=== PATIENT | female | born 1990 | race Caucasian/White ===

== ENCOUNTER → 2018-12-29 12:44 | Outpatient (CLI) | payer OTHER, SELFPAY ==
--- NOTE | 2018-12-29 | DI.US.S_ITS ---
PROCEDURE: US PERIPH VENOUS LOW EXTREM LT INDICATIONS: PAIN IN LEFT ANKLE AND JOINTS OF LEFT FOOT TECHNIQUE: Real-time imaging, as well as color and pulse Doppler interrogation, were performed of the lower extremity deep veins from the inguinal ligament to the popliteal fossa. COMPARISON: None. FINDINGS: The common femoral, femoral and popliteal veins are normally compressible, and free of intraluminal thrombus. Color and pulse Doppler demonstrate normal phasic intraluminal flow. There is normal augmentation response to distal compression maneuver. Incidental note is made of a Sanchez's cyst within the popliteal fossa. IMPRESSION: 1. No evidence of left lower extremity deep vein thrombosis. 2. Sanchez cyst. The need for better evaluation of the knee for internal derangement, utilizing MRI may be determined clinically. Dictated by: Moe Walter M.D. on 12/29/2018 at 13:37 Approved by: Moe Walter M.D. on 12/29/2018 at 13:41
== END ==
PROVIDERS: PCP Nurse Practitioner; Visit Provider Nurse Practitioner
DX: M25.572 Pain in left ankle and joints of left foot (principal); M71.22 Synovial cyst of popliteal space [Baker], left knee
CPT/HCPCS: 93971

== ENCOUNTER 2019-09-07 18:46 | Emergency (ER) | payer OTHER, MEDICAID, SELFPAY ==
[2019-09-07 19:02] VITALS: BP 124/61; PULSE 68; RESP 16; TEMP 37.3; O2SAT 100; BMI 23.3
--- NOTE | 2019-09-07 19:22 | ED_ITS ---
HPI - Abdominal Pain <CARMINE Augustine - Last Filed: 09/07/19 21:10> General Chief Complaint: Abdominal Pain Stated Complaint: LUMP LEFT LOWER SIDE PAIN Time Seen by Provider: 09/07/19 19:02 Source: patient Mode of arrival: Ambulatory Limitations: no limitations History of Present Illness HPI narrative: The patient is a 28-year-old female nonsmoker who denies pertinent medical history presents with a chief complaint of right lower quadrant pain. She states has been going on for the past few months, and that over the past few days has become unbearable. She states that she cannot do anything because the pain, that she cannot stand up straight because the pain. It is worse with activity, motion, she denies any dysuria urgency or frequency. She denies any fevers chest pain shortness of breath. She states the pain is so bad she is nauseous at times. No vomiting or diarrhea. She states that she feels a lump in her right lower quadrant. Related Data Allergies Allergy/AdvReac Type Severity Reaction Status Date / Time No Known Drug Allergies Allergy Verified 09/07/19 19:02 Review of Systems <CARMINE Augustine - Last Filed: 09/07/19 21:10> Review of Systems Narrative: GENERAL: Denies chills, fatigue, malaise, fever, sweats. HEENT: Denies sinus pain, ear pain, sore throat, difficulty swallowing, dizziness. RESPIRATORY: Denies dyspnea, cough, wheezing, hemoptysis, sputum. CARDIOVASCULAR: Denies chest pain, palpitations, orthopnea, edema, GASTROINTESTINAL: See HPI : Denies dysuria, frequency, incontinence, hematuria, urinary retention. MUSCULOSKELETAL: denies weakness, joint pain, or bony pain SKIN: Denies rash, skin lesions, or other NEUROLOGIC: Denies weakness, headache, numbness, change in speech, confusion, seizures, incoordination. PSYCHIATRIC: No concerning psychosocial issues. 12 point review of systems is negative except for those stated above Patient History <PRAVEEN Augustine - Last Filed: 09/07/19 21:10> Social History Smoking Status: Never smoker Smoking Status: Never smoker Substance Use Type: does not use Exam <PRAVEEN Augustine - Last Filed: 09/07/19 21:10> Narrative Exam Narrative: GENERAL: This is a well-nourished, well-developed patient, in no acute distress HEAD: Atraumatic. Normocephalic. No temporal or scalp tenderness. EYES: Pupils equal round and reactive. Extraocular motions intact. No scleral icterus. No injection or drainage. ENT: Nose without bleeding, purulent drainage or septal hematoma. Throat without erythema, tonsillar hypertrophy or exudate. Uvula midline. Airway patent. NECK: Trachea midline. No JVD or lymphadenopathy. Supple, nontender, no meningeal signs. CARDIOVASCULAR: Regular rate and rhythm RESPIRATORY: Clear to auscultation. Breath sounds equal bilaterally. No wheezes, rales, or rhonchi. GASTROINTESTINAL: Abdomen soft, active bowel sounds all 4 quadrants. Pain to palpation right lower quadrant. EXTREMITIES: No clubbing, cyanosis, or edema. No joint tenderness, effusion, or edema noted. BACK: Nontender without deformity or crepitance. No flank tenderness. NEURO: AOx3. SKIN: No rash or erythema on visible skin Initial Vital Signs Initial Vital Signs: Vital Signs Temperature 99.1 F 09/07/19 19:02 Pulse Rate 68 09/07/19 19:02 Respiratory Rate 16 09/07/19 19:02 Blood Pressure 124/61 09/07/19 19:02 Pulse Oximetry 100 09/07/19 19:02 <Bert Chase DO - Last Filed: 09/07/19 21:16> Initial Vital Signs Initial Vital Signs: Vital Signs Temperature 99.1 F 09/07/19 19:02 Pulse Rate 68 09/07/19 19:02 Respiratory Rate 16 09/07/19 19:02 Blood Pressure 124/61 09/07/19 19:02 Pulse Oximetry 100 09/07/19 19:02 Course <PJ Augustine-BC - Last Filed: 09/07/19 21:10> Orders Ordered: ED Orders 09/07/19 19:17 Urine Microscopic Stat 09/07/19 19:30 Amylase Stat Complete Blood Count AUTO DIFF Stat Comprehensive Metabolic Panel Stat Lipase Stat 09/07/19 20:08 US abdomen limited Stat 09/07/19 20:09 CT abdomen pelvis w con Stat Sodium Chloride (Normal Saline 0.9%) 1,000 mls @ 1,000 mls/hr IV BOLUS PRN PRN Reason: Fluid replacement Last Infusion: 09/07/19 20:56 Dose: 0 mls/hr Documented by: Admin: 09/07/19 19:42 Dose: 1,000 mls/hr Documented by: LISA Discontinued Medications Hydrocodone Bitart/Acetaminophen (Vicodin 5/325 Prepack) 1 bottle MISC SEEINSTR ONE Stop: 09/07/19 21:05 Ketorolac Tromethamine (Toradol) 30 mg IV NOW ONE Stop: 09/07/19 19:33 Last Admin: 09/07/19 19:42 Dose: 30 mg Documented by: LISA Ketorolac Tromethamine (Toradol 10mg Prepack) 1 bottle MISC SEEINSTR ONE Stop: 09/07/19 21:05 Ondansetron HCl (Zofran Odt Prepack) 1 bottle MISC SEEINSTR ONE Stop: 09/07/19 21:05 Reevaluation(s) Reevaluation #1: Patient states that her pain is slightly improved with the Toradol. She states the area still sore. Discussed preliminary ultrasound findings with patient including possible mass and right lower quadrant, CT with contrast ordered. Patient in accordance with plan of care. Time: 20:10 Vital Signs Vital signs: Vital Signs - 8 hr 09/07/19 19:02 09/07/19 20:58 Temperature 99.1 F Pulse Rate 68 68 Respiratory Rate 16 16 Blood Pressure 124/61 Blood Pressure [Left Arm] 115/65 Pulse Oximetry 100 98 <Bert Chase, DO - Last Filed: 09/07/19 21:16> Orders Ordered: ED Orders 09/07/19 19:17 Urine Microscopic Stat 09/07/19 19:30 Amylase Stat Complete Blood Count AUTO DIFF Stat Comprehensive Metabolic Panel Stat Lipase Stat 09/07/19 20:08 US abdomen limited Stat 09/07/19 20:09 CT abdomen pelvis w con Stat Sodium Chloride (Normal Saline 0.9%) 1,000 mls @ 1,000 mls/hr IV BOLUS PRN PRN Reason: Fluid replacement Last Infusion: 09/07/19 20:56 Dose: 0 mls/hr Documented by: Admin: 09/07/19 19:42 Dose: 1,000 mls/hr Documented by: LISA Discontinued Medications Hydrocodone Bitart/Acetaminophen (Vicodin 5/325 Prepack) 1 bottle MISC SEEINSTR ONE Stop: 09/07/19 21:05 Ketorolac Tromethamine (Toradol) 30 mg IV NOW ONE Stop: 09/07/19 19:33 Last Admin: 09/07/19 19:42 Dose: 30 mg Documented by: LISA Ketorolac Tromethamine (Toradol 10mg Prepack) 1 bottle MISC SEEINSTR ONE Stop: 09/07/19 21:05 Ondansetron HCl (Zofran Odt Prepack) 1 bottle MISC SEEINSTR ONE Stop: 09/07/19 21:05 Vital Signs Vital signs: Vital Signs - 8 hr 09/07/19 19:02 09/07/19 20:58 Temperature 99.1 F Pulse Rate 68 68 Respiratory Rate 16 16 Blood Pressure 124/61 Blood Pressure [Left Arm] 115/65 Pulse Oximetry 100 98 MDM - Abdominal Pain <PRAVEEN Augustine - Last Filed: 09/07/19 21:10> Lab Data Result diagrams: 09/07/19 19:30 09/07/19 19:30 Labs: Lab Results 09/07/19 09/07/19 09/07/19 Range/Units 19:17 19:30 19:30 WBC 7.5 (4.5-11.0) X10^3/uL RBC 4.11 (4.0-5.2) X10^6/uL Hgb 12.9 (12.0-16.0) g/dL Hct 38.0 (36-46) % MCV 92.4 (80-100) fL MCH 31.4 (26-34) PG MCHC 34.0 (30-36) % RDW 12.2 (11.6-14.8) % Plt Count 288 (150-400) X10^3/uL Neut % (Auto) 46.7 L (50-75) % Lymph % (Auto) 41.1 H (25-40) % [place] % (Auto) 5.5 (3-14) % Eos % (Auto) 6.0 H (2-4) % Baso % (Auto) 0.7 (0-2) % Neut # (Auto) 3500 (4378-4296) /uL Lymph # (Auto) 3100 (9126-5598) /uL [place] # (Auto) 400 (0-900) /uL Eos # (Auto) 500 H (0-450) /uL Baso # (Auto) 100 (0-100) /uL Sodium 138 (137-145) mmol/L Potassium 4.0 (3.4-5.1) mmol/L Chloride 102 (98-107) mmol/L Carbon Dioxide 29 (22-32) mmol/L BUN 17 (7-17) mg/dL Creatinine 0.60 (0.52-1.04) mg/dL Estimated GFR > 60.0 (>60) mL/min BUN/Creatinine Ratio 28.3 H (6-22) Glucose 91 (70-100) mg/dL Calcium 9.5 (8.4-10.2) mg/dL Total Bilirubin 0.5 (0.2-1.3) mg/dL AST 27 (14-36) IU/L ALT 14 (<35) IU/L Alkaline Phosphatase 59 (38-126) U/L Total Protein 7.7 (6.3-8.2) g/dL Albumin 4.7 (3.5-5.0) g/dL Globulin 3.0 (1.7-4.1) g/dL Albumin/Globulin Ratio 1.6 (1.0-2.8) Amylase 87 (30-110) U/L Lipase 33 (23-300) U/L Urine RBC 0-1/hpf (0-5/HPF) Urine WBC 0-1/hpf (0-5/HPF) Ur Squamous Epith Cells 0-1 /hpf (0-5/HPF) Urine Bacteria Occasional (0-1) (None) Ur Culture Indicated? Cult not indicated Point of care testing: Point of Care Testing Test Results Negative Urine Dip Bedside Urine Glucose Negative Bedside Urine Bilirubin - Negative Bedside Urine Ketone - Negative Urine Specific [place] 1.015 Bedside Urine Occult Blood +/- Bedside Urine pH 7.0 Bedside Urine Protein - Negative Bedside Urine Urobilinogen - Negative Bedside Urine Nitrite - Negative Bedside Urine Leukocytes +/- 15 Esterase Imaging Data abd us: Radiologist's Impression: [address] [address] Ultrasound Report Signed Patient: Marielos Christianson MMR#: [id number] : 1990Acct:[id number] Age/Sex: 28 FDate of Service: 09/07/19 Loc: ED Accession Number: [id number] Procedure: US abdomen limited Ordering Provider: Niesha Sharp-BC PROCEDURE: US ABDOMEN LIMITED INDICATIONS: RIGHT LOWER QUADRANT PAIN TECHNIQUE: Real-time scanning was performed of the abdominal and retroperitoneal organs, with image documentation. COMPARISON: None. FINDINGS: There is an ill-defined heterogeneous hypoechoic solid mass with internal vascularity measuring 40 mm x 17 mm x 44 mm within the right lower quadrant abdo yin wall, which does not change with Valsalva. Appendix not seen. Kidneys are normal in size. IMPRESSION: Right lower quadrant mass as described above. Dictated by: Deni Vargas M.D. on 09/07/2019 at 20:20 Approved by: Deni Vargas M.D. on 09/07/2019 at 20:21 CT scan - abdomen/pelvis: Radiologist's Impression: [place] [address] CT Scan Report Signed Patient: Marielos Christianson [facility]#: [id number] : 1990Acct:[id number] Age/Sex: 28 / FDate of Service: 09/07/19 Loc: ED Accession Number: [id number] Procedure: CT abdomen pelvis w con Ordering Provider: Niesha Sharp-JOHNNY PROCEDURE: CT ABDOMEN PELVIS W CON INDICATIONS: RLQ mass on US TECHNIQUE: After the administration of intravenous contrast, 5 mm thick sections acquired from the diaphragm to the symphysis. 5 mm coronal and sagittal reformats were acquired. For radiation dose reduction, the following was used: automated exposure control, adjustment of mA and/or kV according to patient size. COMPARISON: [facility], US ABDOMEN LIMITED, 09/07/2019, 19:49. FINDINGS: Image quality: Excellent. ABDOMEN: Lung bases: Lung bases are clear. Heart size is normal. Solid organs: Liver is normal in size and enhancement. Gallbladder is within normal limits. Biliary system is non dilated. Pancreas enhances normally. Spleen is normal in size and enhancement. No adrenal nodules. Kidneys demonstrate normal size and enhancement, without hydronephrosis. Peritoneum and bowel: Bowel loops demonstrate normal wall thickness and caliber. No free fluid or air. Nodes and vessels: No retroperitoneal or mesenteric adenopathy by size criteria. Aorta and inferior vena cava are normal in size. Miscellaneous: No ventral hernias. There is a well-defined hypervascular focus within the medial aspect of the right rectus femoris muscle measuring roughly 22 mm, corresponding to the sonographically detectable abnormality. PELVIS: Genitourinary: Bladder wall thickness is normal. Intrauterine device is present. Miscellaneous: No inguinal hernias or adenopathy. Bones: No suspicious bony lesions. No vertebral body compression fractures. IMPRESSION: 1. Ill-defined mass within the right rectus femoris muscle corresponding to the sonographically detectable abnormality. this lesion could be biopsied under sonographic guidance, if clinically indicated. Dictated by: Deni Vargas M.D. on 09/07/2019 at 20:40 Approved by: Deni Vargas M.D. on 09/07/2019 at 20:42 MDM Narrative Medical decision making narrative: The patient is a 28 year female who presents with a chief complaint of right lower quadrant pain ongoing for the past several weeks. Lab work is overall benign with no leukocytosis. She has no signs of systemic infection, no fever etcetera. Imaging reveals an ill-defined rectus femoris mass. I spoke wit Dr Man, surgeon on-call, who states that it is likely a spontaneous or non spontaneous hematoma. Encourage pain control follow-up with [facility]. Discussed this at length with the patient, also encouraged follow-up with primary care provider. Patient was treated for pain with Toradol. Discussed not taking ibuprofen with Toradol. Patient has no questions or concerns upon discharge and states understanding return precautions as well as follow-up care. <Bert Chase, DO - Last Filed: 09/07/19 21:16> Lab Data Labs: Lab Results 09/07/19 09/07/19 09/07/19 Range/Units 19:17 19:30 19:30 WBC 7.5 (4.5-11.0) X10^3/uL RBC 4.11 (4.0-5.2) X10^6/uL Hgb 12.9 (12.0-16.0) g/dL Hct 38.0 (36-46) % MCV 92.4 (80-100) fL MCH 31.4 (26-34) PG MCHC 34.0 (30-36) % RDW 12.2 (11.6-14.8) % Plt Count 288 (150-400) X10^3/uL Neut % (Auto) 46.7 L (50-75) % Lymph % (Auto) 41.1 H (25-40) % [place] % (Auto) 5.5 (3-14) % Eos % (Auto) 6.0 H (2-4) % Baso % (Auto) 0.7 (0-2) % Neut # (Auto) 3500 (2896-4464) /uL Lymph # (Auto) 3100 (0235-0708) /uL [place] # (Auto) 400 (0-900) /uL Eos # (Auto) 500 H (0-450) /uL Baso # (Auto) 100 (0-100) /uL Sodium 138 (137-145) mmol/L Potassium 4.0 (3.4-5.1) mmol/L Chloride 102 (98-107) mmol/L Carbon Dioxide 29 (22-32) mmol/L BUN 17 (7-17) mg/dL Creatinine 0.60 (0.52-1.04) mg/dL Estimated GFR > 60.0 (>60) mL/min BUN/Creatinine Ratio 28.3 H (6-22) Glucose 91 (70-100) mg/dL Calcium 9.5 (8.4-10.2) mg/dL Total Bilirubin 0.5 (0.2-1.3) mg/dL AST 27 (14-36) IU/L ALT 14 (<35) IU/L Alkaline Phosphatase 59 (38-126) U/L Total Protein 7.7 (6.3-8.2) g/dL Albumin 4.7 (3.5-5.0) g/dL Globulin 3.0 (1.7-4.1) g/dL Albumin/Globulin Ratio 1.6 (1.0-2.8) Amylase 87 (30-110) U/L Lipase 33 (23-300) U/L Urine RBC 0-1/hpf (0-5/HPF) Urine WBC 0-1/hpf (0-5/HPF) Ur Squamous Epith Cells 0-1 /hpf (0-5/HPF) Urine Bacteria Occasional (0-1) (None) Ur Culture Indicated? Cult not indicated Point of care testing: Point of Care Testing Test Results Negative Urine Dip Bedside Urine Glucose Negative Bedside Urine Bilirubin - Negative Bedside Urine Ketone - Negative Urine Specific [place] 1.015 Bedside Urine Occult Blood +/- Bedside Urine pH 7.0 Bedside Urine Protein - Negative Bedside Urine Urobilinogen - Negative Bedside Urine Nitrite - Negative Bedside Urine Leukocytes +/- 15 Esterase Discharge Plan Departure Patient Disposition: Home Clinical Impression: Abdominal mass, right lower quadrant Abdominal pain Qualifiers: Abdominal location: right lower quadrant Qualified Code(s): R10.31 - Right low er quadrant pain Instructions: DI for Abdominal Pain-Adult Activity Restrictions/Additional Instructions: As discussed, our workup and imaging has a shown a mass in her right lower duc dralon. This mass is in the rectus femoris muscle. I spoke with our surgeon on- call, who states you can follow up with [facility]. Please also follow-up with primary care provider in the next few days. I've given you a work note to help you arrange follow-up care. I have given you a take-home pack of Toradol. This is an NSAID. Do not combine it with other NSAIDs such as Aleve or ibuprofen. I suggest taking it with some food, as it can irritate your stomach. I have given you a take-home pack of narcotic for pain. Be aware that this can be constipating and sedating. I encouraged taking with a stool softener, pushing fluids and fiber. Do not take and drive, operate heavy machinery, etc. Do not combine it with any other sedating substances such as alcohol. The combination of narcotics and alcohol and/or other sedatives can be lethal. Please be aware that we do not provide refills of controlled substances in the emergency department. Please follow up with her primary care provider. Please come back to the emergency department for any acute concerns Referrals: [facility] [Provider Group] Murali Santos [Non-Staff] - Dorothy Carreon [Primary Care Provider] - Stand Alone Forms: Work Release Note <Bert Chase DO - Last Filed: 09/07/19 21:16> Sign Out Provider Sign Out Attestation: Dr Chase Co-Sign Statement: I was available for consultation during this patient's emergency department visit. This chart is signed by myself for administrative purposes only. I did not have direct contact with this patient during this visit. They were seen independently by the APC.
[2019-09-07 19:35] LABS: Bacteria Urine Occasional (0-1); Culture Indicated Urine Cult Not Indicated; RBC Urine 0-1/HPF (0-5/HPF); Squamous Epithelial Cell Urine 0-1 /HPF (0-5/HPF); WBC Urine 0-1/HPF (0-5/HPF)
[2019-09-07 19:37] LABS: Add Manual Diff / Slide Review NO; Basophils Absolute Auto 100 /uL (0-100); Basophils Percent Auto 0.7 % (0-2); Eosinophils Absolute Auto 500 /uL (0-450); Hemoglobin 12.9 g/dL (12.0-16.0); Lymphocytes Absolute Auto 3100 /uL (1100-4500); Lymphocytes Percent Auto 41.1 % (25-40); Mean Corpuscular Hemoglobin 31.4 PG (26-34); Mean Corpuscular Volume 92.4 fL (80-100); Monocytes Absolute Auto 400 /uL (0-900); Monocytes Percent Auto 5.5 % (3-14); Neutrophils Absolute Auto 3500 /uL (1500-7000); Neutrophils Percent Auto 46.7 % (50-75); Platelet Count 288 X10^3/uL (150-400); Red Blood Cell Count 4.11 X10^6/uL (4.0-5.2); Red Cell Distribution Width 12.2 % (11.6-14.8); White Blood Cell Count 7.5 X10^3/uL (4.5-11.0)
[2019-09-07] MEDS: SODIUM CHLORIDE 0.9% 1,000 ML 1000 ML IV (19:42)
[2019-09-07] MEDS: KETOROLAC 60 MG/2 ML VIAL 30 MG IV (19:42)
--- NOTE | 2019-09-07 19:48 | PC.NURSE ---
Pt was eating crackers, upon entering the room., reminded patient of NPO status.
[2019-09-07 20:00] LABS: Alanine Aminotransferase 14 IU/L (<35); Albumin 4.7 g/dL (3.5-5.0); Albumin Globulin Ratio 1.6 (1.0-2.8); Alkaline Phosphatase 59 U/L (38-126); Amylase 87 U/L (30-110); Aspartate Aminotransferase 27 IU/L (14-36); BUN Creatinine Ratio 28.3 (6-22); Bilirubin Total 0.5 mg/dL (0.2-1.3); Blood Urea Nitrogen 17 mg/dL (7-17); Calcium 9.5 mg/dL (8.4-10.2); Carbon Dioxide 29 mmol/L (22-32); Chloride 102 mmol/L (98-107); Estimated Glomerular Filt Rate > 60.0 mL/min (>60); Glucose 91 mg/dL (70-100); HEMOLYSIS < 15 (0-50); Lipase 33 U/L (23-300); Sodium 138 mmol/L (137-145); Total Protein 7.7 g/dL (6.3-8.2)
--- NOTE | 2019-09-07 20:08 | DI.US.S_ITS ---
PROCEDURE: US ABDOMEN LIMITED INDICATIONS: RIGHT LOWER QUADRANT PAIN TECHNIQUE: Real-time scanning was performed of the abdominal and retroperitoneal organs, with image documentation. COMPARISON: None. FINDINGS: There is an ill-defined heterogeneous hypoechoic solid mass with internal vascularity measuring 40 mm x 17 mm x 44 mm within the right lower quadrant abdominal wall, which does not change with Valsalva. Appendix not seen. Kidneys are normal in size. IMPRESSION: Right lower quadrant mass as described above. Dictated by: Deni Vargas M.D. on 09/07/2019 at 20:20 Approved by: Deni Vargas M.D. on 09/07/2019 at 20:21
--- NOTE | 2019-09-07 20:09 | DI.CT.S_ITS ---
PROCEDURE: CT ABDOMEN PELVIS W CON INDICATIONS: RLQ mass on US TECHNIQUE: After the administration of intravenous contrast, 5 mm thick sections acquired from the diaphragm to the symphysis. 5 mm coronal and sagittal reformats were acquired. For radiation dose reduction, the following was used: automated exposure control, adjustment of mA and/or kV according to patient size. COMPARISON: [facility], , US ABDOMEN LIMITED, 09/07/2019, 19:49. FINDINGS: Image quality: Excellent. ABDOMEN: Lung bases: Lung bases are clear. Heart size is normal. Solid organs: Liver is normal in size and enhancement. Gallbladder is within normal limits. Biliary system is non dilated. Pancreas enhances normally. Spleen is normal in size and enhancement. No adrenal nodules. Kidneys demonstrate normal size and enhancement, without hydronephrosis. Peritoneum and bowel: Bowel loops demonstrate normal wall thickness and caliber. No free fluid or air. Nodes and vessels: No retroperitoneal or mesenteric adenopathy by size criteria. Aorta and inferior vena cava are normal in size. Miscellaneous: No ventral hernias. There is a well-defined hypervascular focus within the medial aspect of the right rectus femoris muscle measuring roughly 22 mm, corresponding to the sonographically detectable abnormality. PELVIS: Genitourinary: Bladder wall thickness is normal. Intrauterine device is present. Miscellaneous: No inguinal hernias or adenopathy. Bones: No suspicious bony lesions. No vertebral body compression fractures. IMPRESSION: 1. Ill-defined mass within the right rectus femoris muscle corresponding to the sonographically detectable abnormality. this lesion could be biopsied under sonographic guidance, if clinically indicated. Dictated by: Deni Vargas M.D. on 09/07/2019 at 20:40 Approved by: Deni Vargas M.D. on 09/07/2019 at 20:42
[2019-09-07 20:58] VITALS: BP 115/65; PULSE 68; RESP 16; O2SAT 98
[2019-09-07] MEDS: ONDANSETRON 4 MG ODT PREPACK 1 BOTTLE MISC (21:23)
[2019-09-07] MEDS: HYDROCODONE/ACET 5/325 PREPACK 1 BOTTLE MISC (21:23)
[2019-09-07] MEDS: KETOROLAC 10MG PREPACK 1 BOTTLE MISC (21:23)
== END 2019-09-07 21:31 | disposition home or self-care (01) ==
PROVIDERS: Emergency Provider Nurse Practitioner Family; PCP Nurse Practitioner
DX: R10.31 Right lower quadrant pain (principal); R19.03 Right lower quadrant abdominal swelling, mass and lump; R11.0 Nausea
CPT/HCPCS: 36415; 74177; 76705; 80053; 81003; 81015; 81025; 82150; 83690; 85025; 96361; 96374; 99284; J1885

== ENCOUNTER 2019-10-12 10:22 | Day surgery (SDC) | payer OTHER, MEDICAID, SELFPAY ==
[2019-10-11 07:34] VITALS: BMI 22.8
[2019-10-12] VITALS (8 sets, daily range): BP systolic 96–135; BP diastolic 57–86; PULSE 57–107; RESP 12–17; TEMP 36.6–36.8; O2SAT 96–100; BMI 22.6
[2019-10-12] MEDS: LACTATED RINGERS 1,000 ML 100 ML IV ×2 (11:30→15:08)
[2019-10-12] MEDS: LACTATED RINGERS 1,000 ML 42 ML IV (12:11)
--- NOTE | 2019-10-12 13:40 | PM.PREOP ---
Pre-operative Note Interval Note History & Physical reviewed/Exam performed by Physician: Yes Changes to H&P: No
[2019-10-12] MEDS: CEFAZOLIN 2 GM/100 ML FROZ.PIGGY IV (13:58)
--- NOTE | 2019-10-12 14:10 | SUR.OPER ---
Supine on padded OR bed, head on pillow, arms secured on padded arm boards at <90 degrees abduction, legs uncrossed, safety belt at thigh, tape over blanket over lower legs.
[2019-10-12] MEDS: BUPIVACAINE 0.25% (PF) VIAL 30 ML INJ (14:14)
[2019-10-12] MEDS: KETOROLAC 30 MG/ML VIAL 15 MG IV (15:30)
[2019-10-12] MEDS: fentaNYL 100 MCG/2 ML INJ IV (15:35)
--- NOTE | 2019-10-12 15:35 | PM.OP.1 ---
Operative Date/Time/Diagnoses Date of procedure: 10/12/19 Time of procedure: 15:36 Pre-op diagnosis: Right spigelian hernia Post-op diagnosis: same Procedure & Clinicians Procedure: Open right spigelian hernia repair with mesh Same procedure as scheduled: Yes Indications: 29-year-old female with a right-sided symptomatic spigelian hernia presents for elective open repair Surgeon: Yo Bassett Anesthesia Type: General Operative Notes Findings: Defect in the posterior rectus sheath Specimen(s): none sent Estimated Blood Loss (mL): 10 Procedure in detail: Patient brought to the operating room placed supine on the table. Bilateral lower extremity compression devices were applied. She received 2 g of Ancef prior to skin incision. She was prepped and draped in usual sterile fashion and induced and intubated with an endotracheal tube. Made a 3 cm incision and over the right rectus muscle below the level of the umbilicus. Subcutaneous tissue was divided. Anterior sheath was exposed. A vertical incision in the anterior sheath was made in the rectus muscle was retracted laterally. This exposed an approximately 2 cm defect and posterior sheath. The peritoneum over the defect was carefully lifted up and then an incision was made using [place]. There is no bowel behind here. The defect was then closed with [id number] PDS suture. Next a piece of Vicryl mesh was selected cut to size and then anchored over the posterior she using Prolene suture at 12:36 p.m. and 9 o'clock position. Hemostasis was achieved. The rectus was then placed back in its normal anatomical position the anterior sheath was closed using 0 Vicryl suture. Subcutaneous tissue was then reapproximated using Vicryl and the skin closed with a running Monocryl suture. Complications: none Post-operative Condition: stable Disposition: same day surgery
[2019-10-12] MEDS: OXYCODONE IR 5 MG TABLET PO (15:51)
--- NOTE | 2019-10-12 16:27 | SUR.PHASEII ---
Addendum entered by Ying Delcid R.N. 10/12/19 16:35: Note faxed to [facility] with patients fax information. Original Note: Pt presented to phase 11. Requests water for hydration, denies nausea or pain. SO at bedside. Note to Dr Bassett to fax work release information to [facility] [phone].
--- NOTE | 2019-10-12 17:04 | SUR.PHASEII ---
pt voided w/o difficulty. Dressed and escorted via [facility] to ED entrance in stable condition
== END 2019-10-12 17:04 | disposition home or self-care (01) ==
PROVIDERS: PCP Nurse Practitioner; Referring Provider Surgery; Visit Provider Surgery
PROC: (CPT 49560; principal; 2019-10-12 12:15)
DX: K43.9 Ventral hernia without obstruction or gangrene (principal)
CPT/HCPCS: 49560; 49568; C1781; J0330; J0690; J1100; J1885; J2250; J2405; J2704; J3010

== ENCOUNTER → 2020-11-22 11:33 | Outpatient (CLI) | payer OTHER, SELFPAY ==
[2020-11-22 13:12] LABS: COVID19 -Nasal RAPID Negative (Negative)
== END ==
PROVIDERS: PCP Nurse Practitioner; Visit Provider Student in an Organized Health Care Education/Training Program
DX: Z20.822 Contact with and (suspected) exposure to COVID-19 (principal)
CPT/HCPCS: 87635

== ENCOUNTER 2020-11-23 11:38 | Day surgery (SDC) | payer OTHER, SELFPAY ==
[2020-11-23] VITALS (8 sets, daily range): BP systolic 108–121; BP diastolic 56–80; PULSE 61–96; RESP 12–18; TEMP 36.1–36.8; O2SAT 100; BMI 23.4
--- NOTE | 2020-11-23 11:49 | PM.PREOP ---
Pre-operative Note COVID-19 COVID-19 status: Result pending Interval Note History & Physical reviewed/Exam performed by Physician: Yes Changes to H&P: No
--- NOTE | 2020-11-23 11:50 | PM.HP.1 ---
History of Present Illness History of Present Illness Date Patient Seen: 11/23/20 Time Patient Seen: 11:50 Chief complaint: T&A Narrative: 30-year-old female last seen in clinic 10/24/2020 presents for evaluation of persistently enlarged tonsils and recurrence strep throat and tonsillitis. Primary clinic complains of obstruction, difficulty swallowing. No interval cough, cold, or fever. Patient History Medical History Anemia delivery delivered (08/26/14) Rectal mass Family & Social History Family History Father Hypertension Social History: household members family Tobacco & Substance use: Smoking Status Never smoker alcohol intake current alcohol intake frequency holiday/special occasion Substance Use Type does not use Meds Home Medications and Allergies Home Medications Medication Instructions Recorded Confirmed Type ibuprofen 400 mg tablet 400 mg PO Q6H 09/30/19 11/10/19 History acetaminophen [Tylenol] 650 mg PO QID PRN #60 cap 10/12/19 11/10/19 Rx oxycodone 5 mg PO Q6H PRN #30 tab 10/12/19 11/10/19 Rx azithromycin 250 mg tablet 250 mg PO .COMPLEX #6 tab 10/27/19 11/10/19 Rx Allergies Allergy/AdvReac Type Severity Reaction Status Date / Time No Known Drug Allergies Allergy Verified 11/10/19 09:31 Review of Systems Review of Systems ROS: Yes All systems reviewed with the patient and are negative except as otherwise documented Exam Narrative Exam Narrative: Well-developed well-nourished female in no acute distress. Heart regular rate and rhythm without murmur, lungs clear to auscultation bilaterally Assessment & Plan Assessment & Plan narrative: Assessment: Acute recurrent strep tonsillitis 2. Chronic tonsillitis 3. Tonsillar hypertrophy 4. Respiratory obstruction Plan: Following discussion of the material risks benefits complications and alternatives, she elected to proceed with tonsillectomy and possible adenoidectomy.
--- NOTE | 2020-11-23 11:51 | PM.OP.1 ---
Operative Date/Time/Diagnoses Date of procedure: 11/23/20 Time of procedure: 13:48 Pre-op diagnosis: Acute recurrence streptococcal tonsillitis 2. Chronic tonsillitis 3. Tonsillar hypertrophy 4. Respiratory obstruction Post-op diagnosis: same Procedure & Clinicians Procedure: Tonsillectomy Same procedure as scheduled: Yes Indications: 30-year-old female with the above diagnoses incompletely managed with medical therapy presents for the above procedure. Following discussion of the material risks benefits complications and alternatives, she elected to proceed. Surgeon: Maxwell Rosado Click Yes if Unassisted: Yes Anesthesia Type: General and Local Operative Notes Findings: Intact palate, single uvula, 4+ cryptic tonsils, no adenoids Closure Type: not applicable Specimen(s): none sent Estimated Blood Loss (mL): 20 Procedure in detail: Following identification and confirmation of consent the patient was brought to the operating room suite and placed in the supine position. General endotracheal anesthesia was administered. A head wrap, shoulder roll, and mouth gag were placed and a red rubber catheter was inserted through the nostril and out the mouth to retract the soft palate. No significant adenoid tissue was present. The left tonsil was retracted medially and suction electrocautery on a setting of 30 was used to dissect the tonsil in a subcapsular plane, followed by hemostasis with the same. This process was repeated on the right side with identical findings. The tonsillar fossae were superficially infiltrated bilaterally with a 1:1 mixture of 1% lidocaine 1 100,000 epinephrine and 0.25% Marcaine 1 to [id number] epinephrine. Mouth gag and rubber catheter were removed and the patient was extubated in the operating room and taken to the recovery room in stable condition without known complication. Complications: none Post-operative Condition: stable Disposition: same day surgery Plan for aftercare: Tylenol alternating with ibuprofen every 3 hours, oxycodone for breakthrough pain. Push fluids, in 4 4 L daily. No straining or heavy lifting for 2 weeks, soft diet 2 weeks.
[2020-11-23] MEDS: LACTATED RINGERS 1,000 ML 42 ML IV (12:40)
--- NOTE | 2020-11-23 13:25 | SUR.OPER ---
Supine on padded OR bed, head on gel donut, arm padded and tucked at side, legs uncrossed, safety belt at thigh, tape over blanket over lower legs .
[2020-11-23] MEDS: LIDOCAINE 1% W/EPI 20 ML INJ (13:29)
[2020-11-23] MEDS: BUPIVACAINE 0.25% W/ EPI (PF) 10 ML VIAL 20 ML INJ (13:29)
[2020-11-23] MEDS: ONDANSETRON 4 MG/2 ML INJ IV (14:08)
[2020-11-23] MEDS: OXYCODONE IR 5 MG TABLET PO ×2 (14:08→14:39)
[2020-11-23] MEDS: ACETAMINOPHEN 325 MG TABLET PO ×2 (14:08→14:39)
== END 2020-11-23 15:43 | disposition home or self-care (01) ==
PROVIDERS: PCP Nurse Practitioner Family; Referring Provider Otolaryngology; Visit Provider Otolaryngology
PROC: (CPT 42826; principal; 2020-11-23 12:45)
DX: J03.01 Acute recurrent streptococcal tonsillitis (principal); J35.01 Chronic tonsillitis; J98.8 Other specified respiratory disorders
CPT/HCPCS: 42826; 81025; J1100; J2405; J2704; J3010